=== PATIENT | male | born 1980 | race Caucasian/White ===

== ENCOUNTER 2017-03-24 14:59 | Emergency (ER) | payer OTHER ==
--- NOTE | 2017-03-24 15:56 | UC ---
General HPI - HPI Summary HPI Summary: Plays rec hockey. Last week was hit in ribs and still have discomfort in right upper chest. Has been taking ibuprofen for pain with good relief. Wants to make sure nothing is broken. No SOB, cough, or hemoptysis - History of Current Complaint Chief Complaint: UCGeneralIllness Stated Complaint: RIB INJURY Time Seen by Provider: 03/24/17 15:49 Hx Obtained From: Patient Onset/Duration: Sudden Onset Onset Severity: Moderate Current Severity: Mild - Allergy/Home Medications Allergies/Adverse Reactions: Allergies Allergy/AdvReac Type Severity Reaction Status Date / Time Sulfa Antibiotics Allergy Altered Verified 08/27/16 14:49 Mental Status Lactose Intolerance (GI) AdvReac Severe GI Verified 08/27/16 14:49 Doxycycline AdvReac Mild Vomiting Verified 08/27/16 14:49 PMH/Surg Hx/FS Hx/Imm Hx Previously Healthy: Yes Other History Of: Negative For: Anticoagulant Therapy - Surgical History Surgical History: Yes Surgery Procedure, Year, and Place: wisdom teeth - Family History Known Family History: Positive: None, Cardiac Disease - DAD [place] AGE 33 ( COCAINE USER). PGM [place] AGE 42 (HAD BLOOD CLOT) - Social History Alcohol Use: Occasionally Substance Use Type: Marijuana - former Substance Use Comment - Amount & Last Used: today "vaporizer" "i dont smoke it anymore bc i have asthma" Smoking Status (MU): Former Smoker Type: Cigarettes Amount Used/How Often: 5-10 CIG/DAY Length of Time of Smoking/Using Tobacco: 10+ years Have You Smoked in the Last Year: Yes When Did the Patient Quit Smoking/Using Tobacco: 4 months ago Household Exposure Type: Cigarettes - Immunization History Most Recent Influenza Vaccination: never Most Recent Tetanus Shot: up to date Review of Systems Constitutional: Negative Skin: Negative Respiratory: Negative Cardiovascular: Negative Musculoskeletal: Other: - Right rib/chest pain Neurological: Negative Psychological: Negative Is Patient Immunocompromised?: No All Other Systems Reviewed And Are Negative: Yes Physical Exam Triage Information Reviewed: Yes Appearance: Well-Appearing, Well-Nourished Vital Signs Reviewed: Yes Respiratory: Positive: Lungs clear, Normal breath sounds, No respiratory distress, No accessory muscle use Cardiovascular: Positive: RRR, No Murmur, Pulses Normal Musculoskeletal: Positive: Strength Intact, ROM Intact, No Edema, Other: - TTP over 3rd and 4th right ribs Neurological: Positive: Alert Psychological: Positive: Age Appropriate Behavior Skin Exam: Normal Skin: Negative: rashes, significant lesion(s) Course/Dx - Course Course Of Treatment: XR of ribs and chest were negative. Pt doing well with ibuprofen, but requested 200mg pills to adjust his doses as needed. - Differential Dx - Multi-Symptom Differential Diagnoses: Other - Rib Fracture. Trauma. Pneumothorax. URI. Provider Diagnoses: Chest wall contusion Discharge - Discharge Plan Condition: Stable Disposition: HOME Prescriptions: Ibuprofen [Ibuprofen 200 MG] 200 mg PO Q8HR PRN #100 cap PRN Reason: Pain Patient Education Materials: Rib Fracture (GEN) Referrals: Alberto Michelle MD [Primary Care Provider] - Additional Instructions: 1) 200mg Ibuprofen sent to pharmacy. You can take up to 800mg every 6 hours as you need to for pain. If you develop a fever, chest pain, SOB, new or worsening symptoms - please call our office or go to ED.
--- NOTE | 2017-03-24 17:24 | RAD ---
HISTORY: subacute trauma, right rib pain COMPARISONS: None VIEWS: 5, Frontal view of the chest with frontal and oblique views of the right hemithorax. FINDINGS: There is no displaced rib fracture or pneumothorax. The visualized lungs are clear. IMPRESSION: NO DISPLACED RIB FRACTURE OR PNEUMOTHORAX
[2017-03-24 17:37] VITALS: BP 136/88
== END 2017-03-24 17:33 | disposition home or self-care (01) ==
LOC: UCEAST 14:59
DX: S20.211A Contusion of right front wall of thorax, initial encounter (principal); W22.8XXA Striking against or struck by other objects, initial encounter; Y93.22 Activity, ice hockey; Y92.9 Unspecified place or not applicable; Z88.1 Allergy status to other antibiotic agents; Z88.2 Allergy status to sulfonamides; Z87.891 Personal history of nicotine dependence
CPT/HCPCS: 99202; G0463

== ENCOUNTER 2017-12-23 10:51 | Emergency (ER) | payer OTHER ==
[2017-12-23 11:08] VITALS: BP 123/81
--- NOTE | 2017-12-23 11:38 | UC ---
Skin Complaint HPI - HPI Summary HPI Summary: This is desran Navarroriel Neo documenting for attending Sarah Reina MD. This patient is a 37 year old M presenting to [facility] c/o a diffuse itching rash due to poison diane, he got into to the diane 3 days ago. Since then he has used topical cortisone and Benadryl without relief. He has a history of poison diane reactions and has taken prednisone for it last year. Patient denies trouble breathing and rash inside of his mouth. Patient denies any eye pain elbow he states his eyes have allergies and feel congested times. Patient does not feel he got poison diane in his lungs and advised. Patient without any other complaints. Patients medication reviewed this visit. - History of Current Complaint Chief Complaint: UCRash Time Seen by Provider: 12/23/17 11:17 Stated Complaint: SKIN COMPLAINT Hx Obtained From: Patient Onset/Duration: Still Present Skin Exposure Onset/Duration: Days Ago - 3 Timing: Constant Onset Severity: Moderate Current Severity: Moderate Pain Intensity: 0 Pain Scale Used: 0-10 Numeric Location: Diffuse Character: Redness Associated Signs & Symptoms: Positive: Negative - fever - Allergy/Home Medications Allergies/Adverse Reactions: Allergies Allergy/AdvReac Type Severity Reaction Status Date / Time doxycycline Allergy Rash Verified 12/23/17 11:09 lactose Allergy GI Upset Verified 12/23/17 11:09 Sulfa (Sulfonamide Allergy Rash Verified 12/23/17 11:09 Antibiotics) Home Medications: Home Medications Cetirizine* [ZyrTEC 10 MG TAB*] 10 mg PO DAILY 12/23/17 [History Confirmed 12/23] Review of Systems Constitutional: Negative Skin: Rash All Other Systems Reviewed And Are Negative: Yes PMH/Surg Hx/FS Hx/Imm Hx Previously Healthy: Yes Respiratory History: Asthma Other History Of: Negative For: Anticoagulant Therapy - Surgical History Surgical History: Yes Surgery Procedure, Year, and Place: wisdom teeth - Family History Known Family History: Positive: Cardiac Disease - DAD ID AGE 33 (COCAINE USER). 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 Alcohol Use: Occasionally Substance Use Type: Marijuana Substance Use Comment - Amount & Last Used: today "vaporizer" "i dont smoke it anymore bc i have asthma" Smoking Status (MU): Former Smoker Type: Cigarettes Amount Used/How Often: 5-10 CIG/DAY Length of Time of Smoking/Using Tobacco: 10+ years Have You Smoked in the Last Year: Yes When Did the Patient Quit Smoking/Using Tobacco: 4 months ago Household Exposure Type: Cigarettes - Immunization History Most Recent Influenza Vaccination: never Most Recent Tetanus Shot: up to date Physical Exam - Summary Physical Exam Summary: Vital Signs Reviewed: Yes A+Ox3, no distress Eyes: Conjunctiva Clear ENT: Hearing grossly normal neck: supple Respiratory: Positive: No respiratory distress, No accessory muscle use CTA throughout no w/r Cardiovascular: skin color reflect adequate perfusion RRR nl s1, s2 no m/r Musculoskeletal Exam: STEVE x 4 without difficulty Neurological: Positive: Alert, ambulatory without difficulty Psychological: Positive: Normal Response To Family Skin: Positive: Patient has patches of dry, raised Rash on arms, right buttock , right low back, left forearm, left leg. Erythematous base. Small scattered vesicles with an rash. There is consistent with contact dermatitis such as poison diane no rash noted on face. Triage Information Reviewed: Yes Vital Signs: Initial Vital Signs Temp 98 F 12/23/17 11:06 Pulse 66 12/23/17 11:06 Resp 16 12/23/17 11:06 BP 123/81 12/23/17 11:06 Pulse Ox 100 12/23/17 11:06 Eye Exam: Normal ENT Exam: Normal Dental Exam: Normal Neck exam: Normal Neck: Positive: 1 Respiratory Exam: Normal Cardiovascular Exam: Normal Abdominal Exam: Normal Musculoskeletal Exam: Normal Neurological Exam: Normal Psychological Exam: Normal Skin Exam: Normal Course/Dx - Course Course Of Treatment: Patient presents emergency department after coming in contact with poison diane. Patient with apparent contact dermatitis to his left arm, right buttock, left leg, left lower abdomen. Patient without any respiratory distress or intercrural symptoms. We'll prescribe prednisone taper. Recommend Benadryl with patient precautions. Cool soaks. Avoid NSAIDs. Return precautions. Patient comfortable in agreement with plan. - Diagnoses Provider Diagnoses: poison diane Discharge - Sign-Out/Discharge Documenting (check all that apply): Patient Departure - Discharge Plan Condition: Stable Disposition: HOME Prescriptions: predniSONE TAB* [Deltasone 20 MG TAB*] 20 mg PO DAILY #13 tab Patient Education Materials: Poison Diane (ED) Referrals: Alberto Michelle MD [Primary Care Provider] - Additional Instructions: - Take prednisone exactly as prescribed until gone - starting today - Okay to take Benadryl (1-2 tablets) every 6 hours as needed. This medication may cause drowsiness - do NOT drive, operate machinery or drink alcohol while taking Benadryl -Avoid getting over heated (hot showers, hot tubs, exercise) for at least 48 hours - Try to avoid aspirin, NSAIDs (Motrin, Aleve, Naprosyn) for 2-3 days - Okay to apply cool compresses to the area of injury -Contact your doctor or return here with questions or concerns - Billing Disposition and Condition Condition: STABLE Disposition: Home
== END 2017-12-23 12:15 | disposition home or self-care (01) ==
LOC: UCEAST 10:51
DX: L23.7 Allergic contact dermatitis due to plants, except food (principal); Z88.1 Allergy status to other antibiotic agents; Z91.011 Allergy to milk products; Z88.2 Allergy status to sulfonamides
CPT/HCPCS: 99212; G0463

== ENCOUNTER 2017-12-28 02:00 | Emergency (ER) | payer OTHER ==
[2017-12-28] MEDS ORDERED: NS 0.9% 1000 ML* 1,000 ML IV ONE (04:15)
[2017-12-28 04:54] LABS: ABS Basophils 0.2 10^3/ul (0-0.2); ABS Eosinophils 0.3 10^3/ul (0-0.6); ABS Lymphocytes 4.1 10^3/ul (1.0-4.8); ABS Neutrophils 9.2 10^3/ul (1.5-7.7); ABS Nucleated RBC 0 10^3/ul; Eosinophil % 2.1 % (0-6); Hematocrit 43 % (42-52); Hemoglobin 14.9 g/dl (14.0-18.0); Lymphocyte % 27.9 % (25-47); Mean Corpuscular HGB Conc 35 g/dl (31-36); Mean Corpuscular Hemoglobin 32 pg (27-31); Mean Corpuscular Volume 92 fL (80-94); Mean Platelet Volume 8.4 um3 (7.4-10.4); Nucleated Red Blood Cells % 0.1; Platelet Count 258 10^3/ul (150-450); Red Blood Count 4.66 10^6/ul (4.00-5.40); Red Cell Distribution Width 13 % (10.5-15); White Blood Count 14.8 10^3/ul (3.5-10.8)
[2017-12-28 05:00] LABS: INR 0.91 (0.77-1.02)
--- NOTE | 2017-12-28 05:08 | ED ---
Throat Pain/Nasal Congestion - HPI Summary HPI Summary: This is scribe Orlando Adams documenting for attending Dr. Geovanni Kelsey MD. A 37 y/o male presents to ED c/p sore throat/middle throat pain reaching 4/10 in severity. As per triage, "Pt states that he was playing hockey and was hit in the neck with stick. Pt with c/o throat pain. Pt denies other injury". According to the patient, he got hit in the throat with a hockey stick today around 2029 - 2144 during ice hockey play. He stated that since then he has been having trouble swallowing and has a sore throat since the incident. No pain medications, however, is on steroids for poison yessica. - History of Current Complaint Chief Complaint: EDThroatPain Time Seen by Provider: 12/28/17 03:59 Hx Obtained From: Patient Onset/Duration: Sudden Onset, Still Present Severity: Moderate - 4/10 Associated Signs And Symptoms: Positive: Negative Cough: None - Allergies/Home Medications Allergies/Adverse Reactions: Allergies Allergy/AdvReac Type Severity Reaction Status Date / Time doxycycline Allergy Rash Verified 12/23/17 11:09 lactose Allergy GI Upset Verified 12/23/17 11:09 Sulfa (Sulfonamide Allergy Rash Verified 12/23/17 11:09 Antibiotics) PMH/Surg Hx/FS Hx/Imm Hx Endocrine/Hematology History: Denies: Hx Anticoagulant Therapy, Hx Diabetes, Hx Systemic Lupus Erythematosus, Hx Thyroid Disease Cardiovascular History: Denies: Hx Congestive Heart Failure, Hx Hypertension, Hx Pacemaker/ICD Respiratory History: Reports: Hx Asthma Denies: Hx Chronic Obstructive Pulmonary Disease (COPD) GI History: Denies: Hx Ulcer History: Reports: Other Problems/Disorders - prostatitis Denies: Hx Renal Disease Sensory History: Denies: Hx Hearing Aid Neurological History: Denies: Hx Dementia, Hx Seizures Psychiatric History: Denies: Hx Panic Disorder, Hx Substance Abuse - Surgical History Surgery Procedure, Year, and Place: wisdom teeth - Immunization History Date of Tetanus Vaccine: ~2005 Date of Influenza Vaccine: NONE Infectious Disease History: No Infectious Disease History: Denies: Hx Clostridium Difficile, Hx Hepatitis, Hx Human Immunodeficiency Virus (HIV), Hx of Known/Suspected MRSA, Hx Shingles, Hx Tuberculosis, Hx Known/ Suspected VRE, Hx Known/Suspected VRSA, History Other Infectious Disease, Traveled Outside the [place] in Last 30 Days - Family History Known Family History: Positive: Cardiac Disease - DAD OR AGE 33 (COCAINE USER). PGM OR AGE 42 (HAD BLOOD CLOT) - Social History Alcohol Use: Occasionally Substance Use Type: Reports: Marijuana Substance Use Comment - Amount & Last Used: today "vaporizer" "i dont smoke it anymore bc i have asthma" Smoking Status (MU): Former Smoker Type: Cigarettes Amount Used/How Often: 5-10 CIG/DAY Length of Time of Smoking/Using Tobacco: 10+ years Have You Smoked in the Last Year: Yes Review of Systems Negative: Fever Positive: Sore Throat - Throat pain All Other Systems Reviewed And Are Negative: Yes Physical Exam - Summary Physical Exam Summary: VITAL SIGNS: Reviewed. GENERAL: Patient is a well-developed and nourished (MALE OR FEMALE) who is lying comfortable in the stretcher. Patient is not in any acute respiratory distress. HEAD AND FACE: No signs of trauma. No ecchymosis, hematomas or skull depressions. No sinus tenderness. EYES: PERRLA, EOMI x 2, No injected conjunctiva, no nystagmus. EARS: Hearing grossly intact. Ear canals and tympanic membranes are within normal limits. MOUTH: Oropharynx within normal limits. NECK: Supple, trachea is midline, no adenopathy, no JVD, no carotid bruit, no c- spine tenderness, neck with full ROM. Tenderness mid-neck. CHEST: Symmetric, no tenderness at palpation LUNGS: Clear to auscultation bilaterally. No wheezing or crackles. CVS: Regular rate and rhythm, S1 and S2 present, no murmurs or gallops appreciated. ABDOMEN: Soft, non-tender. No signs of distention. No rebound no guarding, and no masses palpated. Bowel sounds are normal. EXTREMITIES: FROM in all major joints, no edema, no cyanosis or clubbing. NEURO: Alert and oriented x 3. No acute neurological deficits. Speech is normal and follows commands. SKIN: Dry and warm Triage Information Reviewed: Yes Vital Signs On Initial Exam: Initial Vitals Temp Pulse Resp BP Pulse Ox 97.9 F 72 16 138/83 95 12/28/17 02:00 12/28/17 02:00 12/28/17 02:00 12/28/17 02:00 12/28/17 02:00 Vital Signs Reviewed: Yes Diagnostics - Vital Signs Vital Signs Temp Pulse Resp BP Pulse Ox 12/28/17 02:00 97.9 F 72 16 138/83 95 - Laboratory Lab Results: Lab Results 12/28/17 12/28/17 Range/Units 04:41 04:41 WBC 14.8 H (3.5-10.8) 10^3/ul RBC 4.66 (4.00-5.40) 10^6/ul Hgb 14.9 (14.0-18.0) g/dl Hct 43 (42-52) % MCV 92 (80-94) fL MCH 32 H (27-31) pg MCHC 35 (31-36) g/dl RDW 13 (10.5-15) % Plt Count 258 (150-450) 10^3/ul MPV 8.4 (7.4-10.4) um3 Neut % (Auto) 62.4 (38-83) % Lymph % (Auto) 27.9 (25-47) % [place] % (Auto) 6.4 (0-7) % Eos % (Auto) 2.1 (0-6) % Baso % (Auto) 1.2 (0-2) % Absolute Neuts (auto) 9.2 H (1.5-7.7) 10^3/ul Absolute Lymphs (auto) 4.1 (1.0-4.8) 10^3/ul Absolute Monos (auto) 1.0 H (0-0.8) 10^3/ul Absolute Eos (auto) 0.3 (0-0.6) 10^3/ul Absolute Basos (auto) 0.2 (0-0.2) 10^3/ul Absolute Nucleated RBC 0 10^3/ul Nucleated RBC % 0.1 INR (Anticoag Therapy) 0.91 (0.77-1.02) APTT 27.0 (26.0-36.3) seconds Result Diagrams: 12/28/17 04:41 12/28/17 04:41 Lab Statement: Any lab studies that have been ordered have been reviewed, and results considered in the medical decision making process. - CT CT NECK CT Interpretation Completed By: Radiologist - Negative CT soft tissue neck. ED physician reviewed this radiology report. Re-Evaluation - Re-Evaluation First Eval Re-Evaluation Time: 06:34 Comment: Discussed results and plan. EENT Course/Dx - Course Course Of Treatment: A 37 y/o male presents to ED c/p sore throat/middle throat pain reaching 4/[address] Neck revealed a negative CT soft tissue neck. In the ED course, the patient recieved Omnipaque and IV fluids. Patient will be discharged with a diagnosis of contusion. Patient is to follow up with PCP in 1-2 days. Patient is agreeable with this plan. - Diagnoses Provider Diagnoses: Contusion Discharge - Sign-Out/Discharge Documenting (check all that apply): Patient Departure - DISCHARGE - Discharge Plan Condition: Stable Disposition: HOME Patient Education Materials: Contusion in Adults (ED) Referrals: Alberto Michelle MD [Primary Care Provider] - 2 Days Additional Instructions: FOLLOW UP WITH PRIMARY CARE ON SATURDAY. RETURN TO ED FOR ANY NEW OR WORSENING SYMPTOMS.
[2017-12-28 05:09] LABS: EGFR Non-African American 89.7 (>60)
[2017-12-28] MEDS ORDERED: Iohexol 300* (CONTRAST) 10 ML SDV IV ONE (05:34)
[2017-12-28 07:02] VITALS: BP 155/81
--- NOTE | 2017-12-28 09:55 | RAD ---
Indication: Neck injury with hockey stick of the neck. Contrast: Administered 46.2 ml of OMNIPAQUE 300 mg/ml CT of the soft tissues of the neck was performed after IV contrast in the axial plane. Sagittal and coronal reconstructed images were obtained. Oral pharynx is unremarkable. Hypopharynx is unremarkable. Larynx and epiglottis appear grossly unremarkable. Performed recesses are unremarkable. The trachea demonstrates no fracture. Thyroid is grossly unremarkable. Submandibular glands and parotid glands are grossly unremarkable. No fracture of the hyoid bone is noted. The visualized mandible and cervical spine are otherwise unremarkable. Soft tissue demonstrates no evidence of hematoma. No definite soft tissue swelling is noted. Strap muscles and clavicles are grossly unremarkable. The carotid arteries and jugular veins are unremarkable. The lung apices are intact. IMPRESSION: Unremarkable CT of the neck.
== END 2017-12-28 06:55 | disposition home or self-care (01) ==
LOC: ED 02:00
DX: S10.93XA Contusion of unspecified part of neck, initial encounter (principal); W22.8XXA Striking against or struck by other objects, initial encounter; Y92.9 Unspecified place or not applicable; Z87.891 Personal history of nicotine dependence
CPT/HCPCS: 36415; 70491; 80053; 83735; 85025; 85610; 85730; 99282; Q9967

== ENCOUNTER 2018-07-03 22:50 | Emergency (ER) | payer OTHER ==
--- NOTE | 2018-07-03 23:22 | ED ---
HPI Cardiac - HPI Summary HPI Summary: Pt is a 37 y/o M presenting to the ED brought in by EMS with a chief complaint of fast heart rate. He has a hx of asthma and GERD, and he used his albuterol inhaler tonight when playing ice hockey. He got off the bench and fell over due to loss of energy and fast heart rate. He reports fhx of heart attack at 37. - History of Current Complaint Stated Complaint: RAPID HR Time Seen by Provider: 07/03/18 23:01 Hx Obtained From: Patient Onset/Duration: Started Hours Ago, Resolved Timing: Constant Initial Severity: Mild Current Severity: None Character: Fast Aggravating Factor(s): Exertion, Other: - albuterol inhaler Alleviating Factor(s): EMS Tx Associated Signs and Symptoms: Positive: Other: - fast heart rate. Negative: Chest Pain - Allergy/Home Medications Allergies/Adverse Reactions: Allergies Allergy/AdvReac Type Severity Reaction Status Date / Time doxycycline Allergy Rash Verified 12/23/17 11:09 lactose Allergy GI Upset Verified 12/23/17 11:09 Sulfa (Sulfonamide Allergy Rash Verified 12/23/17 11:09 Antibiotics) PMH/Surg Hx/FS Hx/Imm Hx Previously Healthy: Yes Endocrine/Hematology History: Denies: Hx Anticoagulant Therapy, Hx Diabetes, Hx Systemic Lupus Erythematosus, Hx Thyroid Disease Cardiovascular History: Denies: Hx Congestive Heart Failure, Hx Hypertension, Hx Pacemaker/ICD Respiratory History: Reports: Hx Asthma Denies: Hx Chronic Obstructive Pulmonary Disease (COPD) GI History: Denies: Hx Ulcer History: Reports: Other Problems/Disorders - prostatitis Denies: Hx Renal Disease Sensory History: Denies: Hx Hearing Aid Neurological History: Denies: Hx Dementia, Hx Seizures Psychiatric History: Denies: Hx Panic Disorder, Hx Substance Abuse - Surgical History Surgery Procedure, Year, and Place: wisdom teeth - Immunization History Date of Tetanus Vaccine: ~2005 Date of Influenza Vaccine: NONE Infectious Disease History: Denies: Hx Clostridium Difficile, Hx Hepatitis, Hx Human Immunodeficiency Virus (HIV), Hx of Known/Suspected MRSA, Hx Shingles, Hx Tuberculosis, Hx Known/ Suspected VRE, Hx Known/Suspected VRSA, History Other Infectious Disease - Family History Known Family History: Positive: Cardiac Disease - DAD [place] AGE 33 (COCAINE USER). PGM [place] AGE 42 (HAD BLOOD CLOT) - Social History Alcohol Use: Occasionally Substance Use Type: Reports: Marijuana Substance Use Comment - Amount & Last Used: today "vaporizer" "i dont smoke it anymore bc i have asthma" Smoking Status (MU): Former Smoker Type: Cigarettes Amount Used/How Often: 5-10 CIG/DAY Length of Time of Smoking/Using Tobacco: 10+ years Have You Smoked in the Last Year: Yes Review of Systems Negative: Fever Positive: Other - fast heart rate All Other Systems Reviewed And Are Negative: Yes Physical Exam - Summary Physical Exam Summary: VITAL SIGNS: Reviewed. GENERAL: Patient is a well-developed and nourished male who is lying comfortable in the stretcher. Patient is not in any acute respiratory distress. HEAD AND FACE: No signs of trauma. No ecchymosis, hematomas or skull depressions. No sinus tenderness. EYES: PERRLA, EOMI x 2, No injected conjunctiva, no nystagmus. EARS: Hearing grossly intact. Ear canals and tympanic membranes are within normal limits. MOUTH: Oropharynx within normal limits. NECK: Supple, trachea is midline, no adenopathy, no JVD, no carotid bruit, no c- spine tenderness, neck with full ROM. CHEST: Symmetric, no tenderness at palpation LUNGS: Clear to auscultation bilaterally. No wheezing or crackles. CVS: Regular rate and rhythm, S1 and S2 present, no murmurs or gallops appreciated. ABDOMEN: Soft, non-tender. No signs of distention. No rebound no guarding, and no masses palpated. Bowel sounds are normal. EXTREMITIES: FROM in all major joints, no edema, no cyanosis or clubbing. NEURO: Alert and oriented x 3. No acute neurological deficits. Speech is normal and follows commands. SKIN: Dry and warm Triage Information Reviewed: Yes Vital Signs Reviewed: Yes Diagnostics - Laboratory Result Diagrams: 07/03/18 23:39 07/03/18 23:39 Lab Statement: Any lab studies that have been ordered have been reviewed, and results considered in the medical decision making process. - EKG 2326 Cardiac Rate: NL - 66bpm EKG Rhythm: Sinus Rhythm ST Segment: Normal Ectopy: None Re-Evaluation - Re-Evaluation 1st re-eval Re-Evaluation Time: 00:40 Change: Improved Comment: Pt is feeling better and has been in sinus rhythm since he has arrived to the ED. He will be discharged with a dx of SVT. Disposition - Course Course Of Treatment: Pt is a 37 y/o M presenting to the ED brought in by EMS with a chief complaint of fast heart rate. He has a hx of asthma and GERD, and he used his albuterol inhaler tonight when playing ice hockey. He got off the bench and fell over due to loss of energy and fast heart rate. He reports fhx of heart attack at 37. Pt is feeling better as of 40 and will be discharged home with a dx of SVT and instructions to follow up with cardiology. - Diagnoses Provider Diagnoses: SVT (supraventricular tachycardia) Discharge - Sign-Out/Discharge Documenting (check all that apply): Patient Departure Patient Received Moderate/Deep Sedation with Procedure: No - Discharge Plan Condition: Stable Disposition: HOME Patient Education Materials: Supraventricular Tachycardia (ED) Referrals: Alberto Michelle MD [Primary Care Provider] - Additional Instructions: PLEASE FOLLOW UP WITH CARDIOLOGY IN THE NEXT 1-2 DAYS. ALSO FOLLOW UP WITH YOUR PCP IN THE NEXT 1-2 DAYS. RETURN TO THE EMERGENCY DEPARTMENT WITH ANY NEW OR WORSENING SYMPTOMS. - Attestation Statements Document Initiated by Scribe: Yes Documenting Scribe: Tabby Dozier Provider For Whom Sebastiánibe is Documenting (Include Credential): Geovanni Kelsey MD. Scribe Attestation: Tabby Norris, dallased for Geovanni Kelsey MD. on 07/04/18 at 0041. Status of Scribe Document: Ready
[2018-07-03 23:45] LABS: ABS Basophils 0.1 10^3/ul (0-0.2); ABS Eosinophils 0.1 10^3/ul (0-0.6); ABS Lymphocytes 1.9 10^3/ul (1.0-4.8); ABS Monocytes 0.7 10^3/ul (0-0.8); ABS Neutrophils 9.3 10^3/ul (1.5-7.7); ABS Nucleated RBC 0 10^3/ul; Eosinophil % 0.7 %; Hematocrit 47 % (42-52); Lymphocyte % 15.9 %; Mean Corpuscular HGB Conc 34 g/dl (31-36); Mean Corpuscular Hemoglobin 32 pg (27-31); Mean Corpuscular Volume 92 fL (80-94); Mean Platelet Volume 8.4 fL (7.4-10.4); Nucleated Red Blood Cells % 0; Platelet Count 256 10^3/ul (150-450); Red Blood Count 5.09 10^6/ul (4.00-5.40); Red Cell Distribution Width 13 % (10.5-15); White Blood Count 12.2 10^3/ul (3.5-10.8)
[2018-07-04] LABS: Activated Partial Thrombo Time 27.4 seconds (26.0-36.3); INR 0.97 (0.77-1.02)
[2018-07-04 00:05] LABS: Albumin 4.5 g/dL (3.2-5.2); Albumin/Globulin Ratio 1.7 (1-3); BUN/Creatinine Ratio 18.6 (8-20); Calcium 9.8 mg/dL (8.6-10.3); EGFR Non-African American 82.6 (>60); Globulin 2.7 g/dL (2-4); Potassium 4.1 mmol/L (3.5-5.0); Total Bilirubin 0.4 mg/dL (0.2-1.0); Total Protein 7.2 g/dL (6.4-8.9)
[2018-07-04 00:07] LABS: Troponin I 0.02 ng/mL (<0.04)
[2018-07-04 00:26] LABS: TSH (Thyroid Stimulating Horm) 2.5 mcIU/mL (0.34-5.60)
[2018-07-04 01:07] VITALS: BP 111/68
== END 2018-07-04 01:07 | disposition home or self-care (01) ==
LOC: ED 22:50
DX: I47.1 Supraventricular tachycardia (principal); K21.9 Gastro-esophageal reflux disease without esophagitis; J45.909 Unspecified asthma, uncomplicated; Z87.891 Personal history of nicotine dependence; Z88.2 Allergy status to sulfonamides
CPT/HCPCS: 36415; 80053; 83735; 84443; 84484; 85025; 85610; 85730; 93005; 99283

== ENCOUNTER 2018-07-21 15:59 | Emergency (ER) | payer OTHER ==
--- OUTSIDE RECORDS SUMMARY | 2018-07-21 16:04 | XMS REPORT | Continuity of Care Document ---
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 Alberto Michelle MD Primary Care Physician Unavailable Payers Date Identification Numbers Payment Provider Subscriber Effective: 2013 Policy Number: [id number] [facility] Amador Stanton PayID: [id number] [address] [address] [place] [address] Advance Directives Description No Information Available Problems Description No Information Family History Date Family Member(s) Observation Comments Father [place] Paternal Grandfather Prostate Cancer Paternal Grandfather Aneurysm cerebral Paternal Grandmother Deep Vein Thrombosis Social History Type Date Description Comments Sex Unknown Lives With Girlfriend Occupation [employer] Tobacco Use Start: Unknown End: Unknown Patient is a former smoker Allergies, Adverse Reactions, Alerts Date Description Reaction Status Severity Comments 12/04/2013 Seasonal Active 12/04/2013 Mold Active 01/02/2016 Sulfa Active 08/16/2016 White [place] Active 07/29/2013 NKDA Inactive Medications Medication Date Status Form Strength Qnty SIG Indications Ordering Provider Airduo 04/07/ Active Aerosol 113-14mcg/ 3unit one Alberto Walls Respiclick 2018 Act s inhalation Fina 113/14 daily MD anand Famotidine 04/02/ Active Tablets 40mg 60tab 1 tab by K21.9 Alberto Walls 2018 s mouth twice Fina a day prn MD anand Cetirizine HCL 10/09/ Active Tablets 10mg 30tab 1 by mouth R22.1 Wanda 2016 s every day 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 needed for cough or shortness of breath Epipen 2-Koffi / Active Solution 0.3mg/0.3M use as Unknown 0000 Auto-Injec L directed t Symbicort 04/02/ Hx Aerosol 80-4.5mcg/ 10.20 inhale 2 Alberto Walls 2018 - Act 0gm puffs by Fina 04/07/ mouth liya michel MD 2018 times daily Breo Ellipta 12/19/ Hx Aerosol 100-25mcg/ 28uni 1 puff once Chantell 2017 - Inh ts daily Sandra, SAND WORKER 2018 Valium 09/06/ Hx Tablets 5mg 2tabs take 1 Alberto Jon 2016 - 1hour Viviana, 11/06/ prior to M.D. 2016 procedure take another at procedure if needed Ibuprofen 08/16/ Hx Tablets 800mg 30tab take one Dane Boles 2016 - s tablet by Ghada, 03/27/ mouth every M.D. 2018 8 hours as needed with food; maximum daily dose=3 MDD 3 Symbicort 06/19/ Hx Aerosol 80-4.5mcg/ 10.2u 2 puff Chantell 2016 - Act nits twice a day Sandra, 12/19/ SAND WORKER 2017 Flexeril 01/01/ Hx Tablets 10mg 30tab 1 by mouth Alberto Jon 2015 - s three times Viviana, 03/27/ a day as M.D. 2018 needed muscle spasm Flomax 10/06/ Hx Capsules 0.4mg 90cap take one Alberto Jon 2015 - s capsule by Viviana, 08/16/ mouth every M.D. 2017 night Medrol 10/04/ Hx TBPK 4mg 1unit use as Alberto Jon 2015 - s directed Viviana, 10/09/ M.D. 2016 Symbicort 05/18/ Hx Aerosol 80-4.5mcg/ 10.2u 2 puff J45.30 Alberto Jon 2014 - Act nits twice a day Lolaimasierra, 01/01/ M.D. 2015 Symbicort 11/03/ Hx Aerosol 160-4.5mcg 10.20 1-2 puff 493.90 Gaetano 2014 - /Act 0gm twice a day Nigel M.DStu 2015 Physical Hx evaluate 719.47 Wanda Therapy 2015 - and treat JUDAH Edwards 03/30/ Rt foot and 2015 ankle pain Montelukast 12/20/ Hx Tablets 10mg 30tab take 1 R22.1 Gaetano Sodium 2013 - s tablet by Nigel 08/16/ mouth every M.D. 2016 evening Bactrim DS 12/04/ Hx Tablets 800-160mg 28tab 1 po bid 601.9 Gaetano 2014 - s for 14 days Nigel M.DStu 2013 Ciprofloxacin 10/27/ Hx Tablets 500mg 28tab 1 po bid 601.9 Gaetano HCL 2013 - s for 14 days Nigel M.DStu 2013 Symbicort 09/25/ Hx Aerosol 80-4.5mcg/ 1unit 2 puff 493.90 Gaetano 2013 - Act s twice a day Nigel M.DStu 2014 No Active 07/29/ Hx Unknown Medications 2013 - 2013 Loratadine 07/29/ Hx Tablets 10mg 30tab 1 by mouth Gaetano 2013 - s every day Nigel M.DStu 2016 Singulair / Hx Tablets 10mg 30tab 1 po qd Unknown 0000 - s 2013 Ibuprofen / Hx Tablets 600mg 1 tab by Unknown 0000 - mouth every 08/16/ 8 hours as 2017 needed pain. take with food Hydrocodone-Daniele / Hx Tablets 5-325mg 14tab 1 by mouth Unknown taminophen 0000 - s four times 08/16/ a day 2017 Immunizations CPT Code Status Date Vaccine Lot # [id number] Given 04/21/2014 Tdap Tetanus, W Pertussis [id number] Vital Signs Date Vital Result Comment 07/04/2018 3:52pm BP Systolic 100 mmHg BP Diastolic 70 mmHg Heart Rate 56 /min Body Temperature 97.5 F Respiratory Rate 17 /min Height 68 inches 5'8" Weight 225.00 lb BMI (Body Mass Index) 34.2 kg/m2 04/02/2018 7:45pm BP Systolic 116 mmHg BP Diastolic 60 mmHg Heart Rate 72 /min Body Temperature 99.0 F Respiratory Rate 16 /min Height 68 inches 5'8" Weight 218.25 lb BMI (Body Mass Index) 33.2 kg/m2 11/06/2016 10:36am BP Systolic 110 mmHg BP Diastolic 72 mmHg Heart Rate 64 /min Body Temperature 97.3 F Respiratory Rate 18 /min Height 68 inches 5'8" Weight 219.00 lb BMI (Body Mass Index) 33.3 kg/m2 08/16/2016 7:13pm BP Systolic 120 mmHg BP Diastolic 78 mmHg Heart Rate 60 /min Body Temperature 98.3 F Respiratory Rate 16 /min Height 68 inches 5'8" Weight 219.00 lb BMI (Body Mass Index) 33.3 kg/m2 01/02/2016 2:16pm BP Systolic 124 mmHg BP Diastolic 74 mmHg Heart Rate 62 /min Body Temperature 98.1 F Respiratory Rate 18 /min Height 68 inches 5'8" Weight 203.00 lb BMI (Body Mass Index) 30.9 kg/m2 10/17/2015 3:45pm BP Systolic 118 mmHg BP Diastolic 70 mmHg Heart Rate 60 /min Body Temperature 97.6 F Respiratory Rate 18 /min Height 68 inches 5'8" Weight 187.00 lb BMI (Body Mass Index) 28.4 kg/m2 10/10/2015 2:26pm BP Systolic 120 mmHg BP Diastolic 76 mmHg Heart Rate 64 /min Body Temperature 98.9 F Respiratory Rate 16 /min O2 % BldC Oximetry 98 % Height 68 inches 5'8" Weight 193.00 lb BMI (Body Mass Index) 29.3 kg/m2 10/05/2015 11:23am BP Systolic 110 mmHg BP Diastolic 64 mmHg Heart Rate 60 /min Body Temperature 97.9 F Respiratory Rate 18 /min Height 68 inches 5'8" Weight 191.00 lb BMI (Body Mass Index) 29.0 kg/m2 03/30/2015 10:36am BP Systolic 122 mmHg BP Diastolic 74 mmHg Heart Rate 58 /min Body Temperature 97.3 F Respiratory Rate 18 /min Height 68 inches 5'8" Weight 197.00 lb BMI (Body Mass Index) 30.0 kg/m2 11/03/2014 3:55pm BP Systolic 100 mmHg BP Diastolic 60 mmHg Heart Rate 60 /min Body Temperature 99.3 F Respiratory Rate 16 /min O2 % BldC Oximetry 98 % Height 68 inches 5'8" Weight 205.12 lb BMI (Body Mass Index) 31.2 kg/m2 08/03/2014 10:25am BP Systolic 120 mmHg BP Diastolic 70 mmHg Heart Rate 60 /min Body Temperature 97.9 F Respiratory Rate 16 /min Height 68 inches 5'8" Weight 205.00 lb BMI (Body Mass Index) 31.2 kg/m2 02/23/2014 3:34pm BP Systolic 120 mmHg BP Diastolic 76 mmHg Heart Rate 60 /min Body Temperature 98.5 F Respiratory Rate 12 /min Height 68 inches 5'8" Weight 210.00 lb BMI (Body Mass Index) 31.9 kg/m2 12/04/2013 3:35pm BP Systolic 112 mmHg BP Diastolic 78 mmHg Heart Rate 66 /min Body Temperature 97.8 F Height 68 inches 5'8" Weight 214.38 lb BMI (Body Mass Index) 32.6 kg/m2 10/27/2013 8:42am BP Systolic 112 mmHg BP Diastolic 70 mmHg Heart Rate 64 /min Body Temperature 97.5 F Respiratory Rate 16 /min Height 68 inches 5'8" Weight 219.12 lb BMI (Body Mass Index) 33.3 kg/m2 09/25/2013 3:17pm BP Systolic 130 mmHg BP Diastolic 90 mmHg Heart Rate 72 /min Body Temperature 96.6 F Respiratory Rate 12 /min Height 68 inches 5'8" Weight 221.00 lb BMI (Body Mass Index) 33.6 kg/m2 07/29/2013 1:15pm BP Systolic 124 mmHg BP Diastolic 80 mmHg Heart Rate 66 /min Body Temperature 98.3 F Respiratory Rate 18 /min Height 68 inches 5'8" Weight 212.00 lb BMI (Body Mass Index) 32.2 kg/m2 Results Test Date Facility Test Result H/L Range Note CBC Auto Diff 07/03/2018 [facility] White Blood Count 12.2 10^3/uL High 3.5- 10.8 Red Blood Count 5.09 10^6/uL N 4.00-5.40 Hemoglobin 16.0 g/dL N 14.0-18.0 Hematocrit 47 % N 42-52 Mean Corpuscular Volume 92 fL N 80-94 Mean Corpuscular Hemoglobin 32 pg High 27-31 Mean Corpuscular HGB Conc 34 g/dL N 31-36 Red Cell Distribution Width 13 % N 10.5-15 Platelet Count 256 10^3/uL N 150-450 Mean Platelet Volume 8.4 fL N 7.4-10.4 Abs Neutrophils 9.3 10^3/uL High 1.5-7.7 Abs Lymphocytes 1.9 10^3/uL N 1.0-4.8 Abs Monocytes 0.7 10^3/uL N 0-0.8 Abs Eosinophils 0.1 10^3/uL N 0-0.6 Abs Basophils 0.1 10^3/uL N 0-0.2 Abs Nucleated RBC 0 10^3/uL Granulocyte % 76.5 % Lymphocyte % 15.9 % Monocyte % 6.1 % Eosinophil % 0.7 % Basophil % 0.8 % Nucleated Red Blood Cells % 0 Comp Metabolic Panel 07/03/2018 [facility] Sodium 138 mmol/L N 135-145 Potassium 4.1 mmol/L N 3.5-5.0 Chloride 107 mmol/L N 101-111 Co2 Carbon Dioxide 26 mmol/L N 22-32 Anion Gap 5 mmol/L N 2-11 Glucose 105 mg/dL High 70-100 Blood Urea Nitrogen 19 mg/dL N 6-24 Creatinine 1.02 mg/dL N 0.67-1.17 BUN/Creatinine Ratio 18.6 N 8-20 Calcium 9.8 mg/dL N 8.6-10.3 Total Protein 7.2 g/dL N 6.4-8.9 Albumin 4.5 g/dL N 3.2-5.2 Globulin 2.7 g/dL N 2-4 Albumin/Globulin Ratio 1.7 N 1-3 Total Bilirubin 0.40 mg/dL N 0.2-1.0 Alkaline Phosphatase 63 U/L N 34-104 Alt 29 U/L N 7-52 Ast 18 U/L N 13-39 Egfr Non- 82.6 >60 Egfr 100.0 >60 1 Laboratory test finding 07/03/2018 [facility] Magnesium 2.0 mg/dL N 1.9-2.7 Troponin I 0.02 ng/mL <0.04 2 TSH (Thyroid Stim Horm) 2.50 mcIU/mL N 0.34-5.60 Inr/Protime 07/03/2018 [facility] Inr 0.97 N 0.77-1.02 Laboratory test 07/03/2018 [facility] Partial 27.4 seconds N 26.0-36.3 finding Thrombo Time PTT Laboratory test 04/02/2018 [facility] C-Reactive 1.4 mg/L 0.0-4.9 3 finding [address] [facility] Protein, [place] [address] (607)- - Lyme AB/Western 04/02/2018 [facility] Lyme IgG/IgM <0.91 ISR 0.00-0.90 4 Blot Reflex [address] [facility] [place] [address] (607)- - Lyme Disease Ab, Quant, IgM <0.80 index 0.00-0.79 5 CBC Auto Diff 12/28/2017 [facility] White Blood Count 14.8 10^3/uL High 3.5- 10.8 Red Blood Count 4.66 10^6/uL N 4.00-5.40 Hemoglobin 14.9 g/dL N 14.0-18.0 Hematocrit 43 % N 42-52 Mean Corpuscular Volume 92 fL N 80-94 Mean Corpuscular Hemoglobin 32 pg High 27-31 Mean Corpuscular HGB Conc 35 g/dL N 31-36 Red Cell Distribution Width 13 % N 10.5-15 Platelet Count 258 10^3/uL N 150-450 Mean Platelet Volume 8.4 um3 N 7.4-10.4 Abs Neutrophils 9.2 10^3/uL High 1.5-7.7 Abs Lymphocytes 4.1 10^3/uL N 1.0-4.8 Abs Monocytes 1.0 10^3/uL High 0-0.8 Abs Eosinophils 0.3 10^3/uL N 0-0.6 Abs Basophils 0.2 10^3/uL N 0-0.2 Abs Nucleated RBC 0 10^3/uL Granulocyte % 62.4 % N 38-83 Lymphocyte % 27.9 % N 25-47 Monocyte % 6.4 % N 0-7 Eosinophil % 2.1 % N 0-6 Basophil % 1.2 % N 0-2 Nucleated Red Blood Cells % 0.1 Inr/Protime 12/28/2017 [facility] Inr 0.91 N 0.77-1.02 Laboratory test finding 12/28/2017 [facility] Partial Thrombo 27.0 seconds N 26.0-36.3 Time PTT Comp Metabolic Panel 12/28/2017 [facility] Sodium 140 mmol/L N 135-145 Chloride 105 mmol/L N 101-111 Co2 Carbon Dioxide 28 mmol/L N 22-32 Glucose 99 mg/dL N 70-100 Blood Urea Nitrogen 15 mg/dL N 6-24 Creatinine 0.95 mg/dL N 0.67-1.17 BUN/Creatinine Ratio 15.8 N 8-20 Calcium 9.5 mg/dL N 8.6-10.3 Total Protein 6.6 g/dL N 6.4-8.9 Albumin 4.0 g/dL N 3.2-5.2 Globulin 2.6 g/dL N 2-4 Albumin/Globulin Ratio 1.5 N 1-3 Total Bilirubin 0.30 mg/dL N 0.2-1.0 Alkaline Phosphatase 63 U/L N 34-104 Alt 30 U/L N 7-52 Egfr Non- 89.7 >60 Egfr 108.5 >60 6 Potassium 4.2 mmol/L N 3.5-5.0 Anion Gap 7 mmol/L N 2-11 Ast 20 U/L N 13-39 Laboratory test 12/28/2017 [facility] Magnesium 2.2 mg/dL N 1.9-2.7 finding Complete Blood Count 08/17/2016 [facility] ([facility]) WBC 7.6 x10^3/UL 3.6-9.6 RBC 5.14 x10^6/UL 3.90-5.70 HGB 16.2 g/dL 12.1-17.2 HCT 48 % 36-50 MCV 93.0 fL 82.2-97.4 MCH 31.5 pg 27.6-33.3 MCHC 34.1 g/dL 33.0-35.5 RDW 12.8 % 11.6-13.7 PLT 289 x10^3/UL 150-400 MPV 7.4 fL 7.4-10.4 Gran # 4.6 x10^3/UL 1.5-7.2 Lymph# 2.7 x10^3/UL 0.7-4.9 [place]# 0.3 x10^3/UL 0.1-0.9 Gran % 59.0 % 42.2-75.2 Lymph % 36.1 % 20.5-51.1 [place]% 4.9 % 1.7-9.3 Basic Metabolic Profile 08/17/2016 [facility] (a) Sodium 142 mEq/L 134-149 Potassium 4.6 mEq/L 3.6-5.5 Chloride 107 mEq/L 94-112 Carbon Dioxide 25 mEq/L 21-32 Glucose 113 mg/dL High 70-105 7 BUN 17 mg/dL 6-26 Creatinine 0.9 mg/dL 0.6-1.4 BUN/Creat Ratio 18.9 CALC 8.0-36.0 Calcium 8.9 mg/dL 8.6-10.2 GFR Non- >60 ml/min/1.73m^ >=60 GFR >60 ml/min/1.73m^ >=60 Laboratory test 08/17/2016 [facility] Sedimentation Rate 3mm finding (607)- - Laboratory test 01/02/2016 [facility] Antinuclear Negative 8 finding [address] [facility] Antibodies, [place] [address] (607)- - Laboratory test 01/02/2016 [facility] Sedimentation Rate 7mm finding (607)- - Rheumatoid 01/02/2016 [facility] Ra Latex Turbid. 9.2 IU/mL 0.0-13 Arthritis Factor [address]9 ([facility]) [place] [address] (607)- - Laboratory test 01/02/2016 [facility] C-Reactive Protein, 15.2 mg/L High 0.0 -4. finding [address] [facility] Quant 9 [place] [address] (607)- - Hla B 27 Disease Association Negative 9 CBC Electronic (Fma) 01/02/2016 [facility] WBC 8.4 3.6-9.6 (607)- - RBC 4.43 3.90-5.70 Hemoglobin (Fma/CMC/CTX) 15.2 g/dL 12.1 - 17.2 Hematocrit (Fma/CMC/CTX) 42.8 % 36.1 - 50.3 Platelets 250 10^3/ul 150-400 Lymph% 22.8 % 17.0-48.0 Mixed% 4.3 Neutrophils % 72.9 Mean Corpuscular Vol 96 82.2-97.4 Mean Corpuscular Hemoglobin 34.2 High 27.6-33.3 Mean Corpuscular Hemo Concen 35.4 32.0-36.0 RDW 12.6 11.6-13.7 Mean Platelet Volume 8.1 5.5-11.0 CBC Auto Diff 12/30/2015 [facility] White Blood Count 17.8 10^3/uL High 3.5- 10.8 Red Blood Count 5.04 10^6/uL N 4.0-5.4 Hemoglobin 15.8 g/dL N 14.0-18.0 Hematocrit 47 % N 42-52 Mean Corpuscular Volume 93 fL N 80-94 Mean Corpuscular Hemoglobin 31 pg N 27-31 Mean Corpuscular HGB Conc 34 g/dL N 31-36 Red Cell Distribution Width 13 % N 10.5-15 Platelet Count 228 10^3/uL N 150-450 Mean Platelet Volume 10 um3 N 7.4-10.4 Abs Neutrophils 15.1 10^3/uL High 1.5-7.7 Abs Lymphocytes 1.6 10^3/uL N 1.0-4.8 Abs Monocytes 0.9 10^3/uL High 0-0.8 Abs Eosinophils 0.1 10^3/uL N 0-0.6 Abs Basophils 0.1 10^3/uL N 0-0.2 Abs Nucleated RBC 0 10^3/uL N Granulocyte % 84.8 % High 38-83 Lymphocyte % 9.1 % Low 25-47 Monocyte % 5.1 % N 1-9 Eosinophil % 0.4 % N 0-6 Basophil % 0.6 % N 0-2 Nucleated Red Blood Cells % 0 N Urinalysis Profile 12/30/2015 [facility] Urine Color Yellow N Urine Appearance Clear N Urine Specific [place] 1.051 High 1.010-1.030 Urine pH 5.0 N 5-9 Urine Urobilinogen Negative N Negative Urine Ketones Trace Abnormal Negative Urine Protein Negative N Negative Urine Leukocytes Negative N Negative Urine Blood Negative N Negative Urine Nitrite Negative N Negative Urine Bilirubin Negative N Negative Urine Glucose Negative N Negative Laboratory test finding 12/30/2015 [facility] Lactic Acid 1.9 mmol/L N 0.5-2.0 10 Comp Metabolic Panel 12/30/2015 [facility] Sodium 139 mmol/L N 133-145 Potassium 3.4 mmol/L Low 3.5-5.0 Chloride 104 mmol/L N 101-111 Co2 Carbon Dioxide 26 mmol/L N 22-32 Anion Gap 9 mmol/L N 2-11 Glucose 108 mg/dL High 70-100 Blood Urea Nitrogen 18 mg/dL N 6-24 Creatinine 1.06 mg/dL N 0.67-1.17 BUN/Creatinine Ratio 17.0 N 8-20 Calcium 9.2 mg/dL N 8.6-10.3 Total Protein 7.0 g/dL N 6.4-8.9 Albumin 4.2 g/dL N 3.2-5.2 Globulin 2.8 g/dL N 2-4 Albumin/Globulin Ratio 1.5 N 1-3 Total Bilirubin 0.50 mg/dL N 0.2-1.0 Alkaline Phosphatase 61 U/L N 34-104 Alt 19 U/L N 7-52 Ast 17 U/L N 13-39 Egfr Non- 80.0 N >60 Egfr 102.9 N >60 11 Laboratory test finding 12/30/2015 [facility] Lipase 28 U/L N 11.0-82.0 Alcohol < 10 mg/dL N <10 Laboratory test 10/17/2015 [facility] C1 Esterase 122 %meannormal 12, 13 finding [address] [facility] Inhibitor, [place] [address] (013)- - C1 Esterase Inhibitor, Serum 34 mg/dL 21-39 Complement C4, Serum 32 mg/dL 14-44 Tryptase 7.6 ug/L 2.2-13.2 Laboratory test finding 10/15/2015 [facility] B Type Natriuretic 11 pg/mL N 14 Peptide CKMB 10/15/2015 [facility] CKMB ng/mL 0.9 ng/mL N 0.6-6.3 Laboratory test finding 10/15/2015 [facility] Magnesium 2.1 mg/dL N 1.9-2.7 Creatine Kinase(CK) 67 U/L N 10-223 Troponin I 0.00 ng/mL N <0.03 15 Urine Drug SCR ED 10/15/2015 [facility] Amphetamine Ur Screen None Detected N None Detect [facility] Barbiturates Urine Screen None Detected N None Detect Benzodiazepine Urine Screen None Detected N None Detect Urine Cannabinoids Screen None Detected N None Detect Urine Cocaine Screen None Detected N None Detect Urine Opiates Screen None Detected N None Detect Urine Phencyclidine Screen None Detected N None Detect 17 Laboratory test finding 10/15/2015 [facility] Inr/Protime 1.02 N 0.89-1.11 D Dimer Quantitative < 200 ng/mL N Less Than 230 18 Comp Metabolic Panel 10/15/2015 [facility] Sodium 136 mmol/L N 133-145 Potassium 4.0 mmol/L N 3.5-5.0 Chloride 104 mmol/L N 101-111 Co2 Carbon Dioxide 27 mmol/L N 22-32 Anion Gap 5 mmol/L N 2-11 Glucose 96 mg/dL N 70-100 Blood Urea Nitrogen 17 mg/dL N 6-24 Creatinine 0.86 mg/dL N 0.67-1.17 BUN/Creatinine Ratio 19.8 N 8-20 Calcium 9.4 mg/dL N 8.6-10.3 Total Protein 6.8 g/dL N 6.4-8.9 Albumin 4.3 g/dL N 3.2-5.2 Globulin 2.5 g/dL N 2-4 Albumin/Globulin Ratio 1.7 N 1-3 Total Bilirubin 0.50 mg/dL N 0.2-1.0 Alkaline Phosphatase 50 U/L N 34-104 Alt 16 U/L N 7-52 Ast 13 U/L N 13-39 Egfr Non- 101.8 N >60 Egfr 130.9 N >60 19 Laboratory test 10/15/2015 [facility] Lactic Acid 0.5 mmol/L N 0.5-2.0 20 finding CBC Auto Diff 10/15/2015 [facility] White Blood Count 11.2 10^3/uL High 3.5- 10.8 Red Blood Count 5.11 10^6/uL N 4.0-5.4 Hemoglobin 15.9 g/dL N 14.0-18.0 Hematocrit 48 % N 42-52 Mean Corpuscular Volume 94 fL N 80-94 Mean Corpuscular Hemoglobin 31 pg N 27-31 Mean Corpuscular HGB Conc 33 g/dL N 31-36 Red Cell Distribution Width 13 % N 10.5-15 Platelet Count 242 10^3/uL N 150-450 Mean Platelet Volume 9 um3 N 7.4-10.4 Abs Neutrophils 8.0 10^3/uL High 1.5-7.7 Abs Lymphocytes 2.1 10^3/uL N 1.0-4.8 Abs Monocytes 0.8 10^3/uL N 0-0.8 Abs Eosinophils 0.2 10^3/uL N 0-0.6 Abs Basophils 0.1 10^3/uL N 0-0.2 Abs Nucleated RBC 0.03 10^3/uL N Granulocyte % 71.1 % N 38-83 Lymphocyte % 19.1 % Low 25-47 Monocyte % 7.1 % N 1-9 Eosinophil % 1.5 % N 0-6 Basophil % 1.2 % N 0-2 Nucleated Red Blood Cells % 0.3 N Laboratory test finding 10/13/2015 [facility] Lactic Acid 1.5 mmol/L N 0.5-2.0 21 CBC Auto Diff 10/13/2015 [facility] White Blood Count 10.5 10^3/uL N 3.5-10.8 Red Blood Count 5.02 10^6/uL N 4.0-5.4 Hemoglobin 16.1 g/dL N 14.0-18.0 Hematocrit 47 % N 42-52 Mean Corpuscular Volume 93 fL N 80-94 Mean Corpuscular Hemoglobin 32 pg High 27-31 Mean Corpuscular HGB Conc 35 g/dL N 31-36 Red Cell Distribution Width 13 % N 10.5-15 Platelet Count 246 10^3/uL N 150-450 Mean Platelet Volume 9 um3 N 7.4-10.4 Abs Neutrophils 6.0 10^3/uL N 1.5-7.7 Abs Lymphocytes 3.5 10^3/uL N 1.0-4.8 Abs Monocytes 0.7 10^3/uL N 0-0.8 Abs Eosinophils 0.2 10^3/uL N 0-0.6 Abs Basophils 0.1 10^3/uL N 0-0.2 Abs Nucleated RBC 0.01 10^3/uL N Granulocyte % 57.3 % N 38-83 Lymphocyte % 33.8 % N 25-47 Monocyte % 6.3 % N 1-9 Eosinophil % 1.9 % N 0-6 Basophil % 0.7 % N 0-2 Nucleated Red Blood Cells % 0.1 N Comp Metabolic Panel 10/13/2015 [facility] Sodium 137 mmol/L N 133-145 Potassium 3.7 mmol/L N 3.5-5.0 Chloride 104 mmol/L N 101-111 Co2 Carbon Dioxide 27 mmol/L N 22-32 Anion Gap 6 mmol/L N 2-11 Glucose 103 mg/dL High 70-100 Blood Urea Nitrogen 13 mg/dL N 6-24 Creatinine 0.99 mg/dL N 0.67-1.17 BUN/Creatinine Ratio 13.1 N 8-20 Calcium 9.6 mg/dL N 8.6-10.3 Total Protein 7.1 g/dL N 6.4-8.9 Albumin 4.2 g/dL N 3.2-5.2 Globulin 2.9 g/dL N 2-4 Albumin/Globulin Ratio 1.4 N 1-3 Total Bilirubin 0.40 mg/dL N 0.2-1.0 Alkaline Phosphatase 54 U/L N 34-104 Alt 22 U/L N 7-52 Ast 13 U/L N 13-39 Egfr Non- 86.5 N >60 Egfr 111.3 N >60 22 Laboratory test finding 10/13/2015 [facility] Magnesium 1.8 mg/dL Low 1.9-2.7 Troponin I 0.00 ng/mL N <0.03 23 TSH (Thyroid Stim Horm) 2.40 ?IU/mL N 0.34-5.60 Laboratory test 10/05/2015 [facility] Sedimentation 5 mm/hr 0-15 24 finding [address] [facility] [place] [address] (607)- - Immunoglobulin E, Total 11 IU/mL 0-100 C-Reactive Protein, Quant 0.6 mg/L 0.0-4.9 Lyme AB/Western 10/05/2015 [facility] Lyme IgG/IgM <0.91 ISR 0.00-0.90 25 Blot Reflex [address] [place] [id number] (601)- - Lyme Disease Ab, Quant, IgM <0.80 index 0.00-0.79 26 CBC With 10/05/2015 [facility] WBC 8.0 x10E3/uL 3.4-10.8 Differential/Platelet [address] [place] [id number] (607)- - RBC 5.25 x10E6/uL 4.14-5.80 Hemoglobin 16.6 g/dL 12.6-17.7 Hematocrit 48.5 % 37.5-51.0 MCV 92 fL 79-97 MCH 31.6 pg 26.6-33.0 MCHC 34.2 g/dL 31.5-35.7 RDW 13.2 % 12.3-15.4 Platelets 270 x10E3/uL 150-379 Neutrophils 61 % Lymphs 31 % Monocytes 5 % Eos 3 % Basos 0 % Immature Cells TNP Neutrophils (Absolute) 4.9 x10E3/uL 1.4-7.0 Lymphs (Absolute) 2.4 x10E3/uL 0.7-3.1 Monocytes(Absolute) 0.4 x10E3/uL 0.1-0.9 Eos (Absolute) 0.2 x10E3/uL 0.0-0.4 Baso (Absolute) 0.0 x10E3/uL 0.0-0.2 Immature Granulocytes 0 % Immature Grans (Abs) 0.0 x10E3/uL 0.0-0.1 NRBC [place] Hematology Comments: TNP Laboratory test 2015 [facility] Rapid Strep Negative N Negative 27 finding Molecular Laboratory test 2015 [facility] Rapid Strep A SEE RESULT 28 finding BELOW Laboratory test 07/02/2015 [facility] Throat Beta SEE RESULT 29 finding Strep Culture BELOW Laboratory test 07/02/2015 [facility] Rapid Strep Negative N Negative 30 finding Molecular Lyme AB/Western 03/30/2015 [facility] Lyme IgG/IgM <0.91 ISR 0.00-0.90 31 , 32 Blot Reflex [address] [place] [address] [phone] Lyme Disease Ab, Quant, IgM <0.80 index 0.00-0.79 33 Urinalysis Profile 01/05/2014 [facility] Urine Color Yellow Urine Appearance Clear Urine Specific [place] 1.026 1.010-1.030 Urine pH 5.0 5-9 Urine Urobilinogen Negative Negative Urine Ketones Trace Negative Urine Protein Negative Negative Urine Leukocytes Negative Negative Urine Blood Negative Negative * * Abnormal Negative 34 Urine Nitrite Negative Negative Urine Bilirubin Negative Negative Urine Glucose Negative Negative Comp Metabolic Panel 01/05/2014 [facility] Sodium 137 mmol/L 133-145 Potassium 3.8 mmol/L 3.7-5.6 Chloride 106 mmol/L 101-111 Co2 Carbon Dioxide 26 mmol/L 22-32 Anion Gap 5 mmol/L 2-11 Glucose 89 mg/dL 70-100 Blood Urea Nitrogen 21 mg/dL 6-24 Creatinine 0.91 mg/dL 0.67-1.17 BUN/Creatinine Ratio 23.1 High 8-20 Calcium 9.3 mg/dL 8.6-10.3 Total Protein 7.7 g/dL 6.4-8.9 Albumin 4.8 g/dL 3.2-5.2 Globulin 2.9 g/dL 2-4 Albumin/Globulin Ratio 1.7 1-3 Total Bilirubin 0.50 mg/dL 0.2-1.0 Alkaline Phosphatase 52 U/L 34-104 Alt 27 U/L 7-52 Ast 18 U/L 13-39 Egfr Non- 96.6 >60 Egfr 124.2 >60 35 CBC Auto Diff 01/05/2014 [facility] White Blood Count 11.5 10^3/uL High 4.8- 10.8 Red Blood Count 4.97 10^6/uL 4.0-5.4 Hemoglobin 15.5 g/dL 14.0-18.0 Hematocrit 44 % 42-52 Mean Corpuscular Volume 89 fL 80-94 Mean Corpuscular Hemoglobin 31 pg 27-31 Mean Corpuscular HGB Conc 35 g/dL 31-36 Red Cell Distribution Width 13 % 10.5-15 Platelet Count 237 10^3/uL 150-450 Mean Platelet Volume 8 um3 7.4-10.4 Abs Neutrophils 7.7 10^3/uL 1.5-7.7 Abs Lymphocytes 2.7 10^3/uL 1.0-4.8 Abs Monocytes 0.8 10^3/uL 0-0.8 Abs Eosinophils 0.2 10^3/uL 0-0.6 Abs Basophils 0.1 10^3/uL 0-0.2 Abs Nucleated RBC 0.01 10^3/uL Granulocyte % 67.2 % 38-83 Lymphocyte % 23.4 % Low 25-47 Monocyte % 6.9 % 1-9 Eosinophil % 1.5 % 0-6 Basophil % 1.0 % 0-2 Nucleated Red Blood Cells % 0 Urinalysis Profile 12/22/2013 [facility] Urine Color Yellow Urine Appearance Clear Urine Specific [place] 1.015 1.010-1.030 Urine pH 7.0 5-9 Urine Urobilinogen Negative Negative Urine Ketones Negative Negative Urine Protein Negative Negative Urine Leukocytes Negative Negative Urine Blood Negative Negative Urine Nitrite Negative Negative Urine Bilirubin Negative Negative Urine Glucose Negative Negative CBC Auto Diff 12/22/2013 [facility] [place] White Blood Count 7.6 10^3/uL 4.8-10.8 Red Blood Count 5.08 10^6/uL 4.0-5.4 Hemoglobin 15.9 g/dL 14.0-18.0 Hematocrit 46 % 42-52 Mean Corpuscular Volume 90 fL 80-94 Mean Corpuscular Hemoglobin 31 pg 27-31 Mean Corpuscular HGB Conc 35 g/dL 31-36 Red Cell Distribution Width 13 % 10.5-15 Platelet Count 231 10^3/uL 150-450 Mean Platelet Volume 8 um3 7.4-10.4 Abs Neutrophils 4.8 10^3/uL 1.5-7.7 Abs Lymphocytes 2.0 10^3/uL 1.0-4.8 Abs Monocytes 0.5 10^3/uL 0-0.8 Abs Eosinophils 0.2 10^3/uL 0-0.6 Abs Basophils 0.1 10^3/uL 0-0.2 Abs Nucleated RBC 0.01 10^3/uL Granulocyte % 63.5 % 38-83 Lymphocyte % 26.8 % 25-47 Monocyte % 6.5 % 1-9 Eosinophil % 2.1 % 0-6 Basophil % 1.1 % 0-2 Nucleated Red Blood Cells % 0.1 Comp Metabolic Panel 12/22/2013 [facility] Sodium 135 mmol/L 133-145 Potassium 4.0 mmol/L 3.7-5.6 Chloride 105 mmol/L 101-111 Co2 Carbon Dioxide 27 mmol/L 22-32 Anion Gap 3 mmol/L 2-11 Glucose 104 mg/dL High 70-100 Blood Urea Nitrogen 15 mg/dL 6-24 Creatinine 0.67 mg/dL 0.67-1.17 BUN/Creatinine Ratio 22.4 High 8-20 Calcium 9.3 mg/dL 8.6-10.3 Total Protein 7.1 g/dL 6.4-8.9 Albumin 4.4 g/dL 3.2-5.2 Globulin 2.7 g/dL 2-4 Albumin/Globulin Ratio 1.6 1-3 Total Bilirubin 0.50 mg/dL 0.2-1.0 Alkaline Phosphatase 51 U/L 34-104 Alt 30 U/L 7-52 Ast 17 U/L 13-39 Egfr Non- 137.5 >60 Egfr 176.8 >60 36 Laboratory test finding 12/22/2013 [facility] Lipase 25 U/L 11.0-82.0 C Reactive Protein 1.29 mg/L < 5.00 37 Lactic Acid 1.0 mmol/L 0.5-2.2 1 Because ethnic data is not always readily available, this report includes an eGFR for both -Americans and non- Americans. The National Kidney Disease Education Program (NKDEP) does not endorse the use of the MDRD equation for patients that are not between the ages of 18 and 70, are , have extremes of body size, muscle mass, or nutritional status, or are non- or non-. According to the National Kidney Foundation, irrespective of diagnosis, the stage of the disease is based on the level of kidney function: Stage Description GFR(mL/min/1.73 m(2)) 1 Kidney damage with normal or decreased GFR 90 2 Kidney damage with mild decrease in GFR 60-89 3 Moderate decrease in GFR 30-59 4 Severe decrease in GFR 15-29 5 Kidney failure <15 (or dialysis) 2 Troponin-I testing on Plasma Separator Tubes (PST) has a known false positive rate of 0.20-0.40%. All positive troponins reflex immediate secondary confirmatory testing. 3 2 SST 4 Negative <0.91 Equivocal 0.91 - 1.09 Positive >1.09 5 Negative <0.80 Equivocal 0.80 - 1.19 Positive >1.19 IgM levels may peak at 3-6 weeks post infection, then gradually decline. 6 Because ethnic data is not always readily available, this report includes an eGFR for both -Americans and non- Americans. The National Kidney Disease Education Program (NKDEP) does not endorse the use of the MDRD equation for patients that are not between the ages of 18 and 70, are , have extremes of body size, muscle mass, or nutritional status, or are non- or non-. According to the National Kidney Foundation, irrespective of diagnosis, the stage of the disease is based on the level of kidney function: Stage Description GFR(mL/min/1.73 m(2)) 1 Kidney damage with normal or decreased GFR 90 2 Kidney damage with mild decrease in GFR 60-89 3 Moderate decrease in GFR 30-59 4 Severe decrease in GFR 15-29 5 Kidney failure <15 (or dialysis) 7 NON-FASTING 8 Negative <1:80 Borderline 1:80 Positive >1:80 9 HLA-B*27 Negative HLA allele interpretation for all loci based on IMGT/HLA database version 3.21 [facility] CLIA ID Number [id number] This test was performed using PCR (Polymerase Chain Reaction)/SSOP (Sequence Specific Oligonucleotide Probes) technique. SBT (Sequence Based Typing) and/or SSP (Sequence Specific Primers) may be used as supplemental methods when necessary. Please contact [facility] Customer Service at if you have any questions. Director of [facility] Laboratory Dr Milo Zavala, PhD 10 [facility] Severe Sepsis and Septic Shock Management Bundle Measure requires all lactic acids initially measuring >2.0 mmol/L be repeated. 11 Because ethnic data is not always readily available, this report includes an eGFR for both -Americans and non- Americans. The National Kidney Disease Education Program (NKDEP) does not endorse the use of the MDRD equation for patients that are not between the ages of 18 and 70, are , have extremes of body size, muscle mass, or nutritional status, or are non- or non-. According to the National Kidney Foundation, irrespective of diagnosis, the stage of the disease is based on the level of kidney function: Stage Description GFR(mL/min/1.73 m(2)) 1 Kidney damage with normal or decreased GFR 90 2 Kidney damage with mild decrease in GFR 60-89 3 Moderate decrease in GFR 30-59 4 Severe decrease in GFR 15-29 5 Kidney failure <15 (or dialysis) 12 1SST ROOM [id number] OFF SE RUM ROOM [id number] OFF SER UM FROZEN 13 Abnormal <41 Equivocal 41 - 67 Normal >67 14 >100 to <200 pg/mL: likely compensated congestive heart failure (CHF) 200 to 400 pg/mL: likely moderate CHF >400 pg/mL: likely moderate to severe CHF 15 Reference Range and Interpretation: TnI (ng/mL) Interpretation Less Than 0.03 ng/mL Not supportive of diagnosis of [place] 0.03 - 0.50 ng/mL Indeterminate: suggest serial studies if clinically indicated. Greater than 0.5 ng/mL Consistent with diagnosis of [place] 16 Comment: d 17 The urine specimen was tested at the listed cutoffs: Drug class test level (ng/mL) Amphetamines 500 Barbiturates 200 Benzodiazepine metabolites 200 Cocaine metabolites 150 Cannabinoids 50 Opiates 300 Pcp 25 Specimen was received without chain of custody. Results should be used for medical purposes only. 18 Please note: The following may produce a false positive D Dimer test: - Rheumatoid factor greater than 60 IU/ml - Plasma hemoglobin greater than 0.05 gm/dl - Bilirubin greater than 50 mg/dl - Lipids greater than 1000 mg/dl - FDP greater than 20 ug/ml 19 Because ethnic data is not always readily available, this report includes an eGFR for both -Americans and non- Americans. The National Kidney Disease Education Program (NKDEP) does not endorse the use of the MDRD equation for patients that are not between the ages of 18 and 70, are , have extremes of body size, muscle mass, or nutritional status, or are non- or non-. According to the National Kidney Foundation, irrespective of diagnosis, the stage of the disease is based on the level of kidney function: Stage Description GFR(mL/min/1.73 m(2)) 1 Kidney damage with normal or decreased GFR 90 2 Kidney damage with mild decrease in GFR 60-89 3 Moderate decrease in GFR 30-59 4 Severe decrease in GFR 15-29 5 Kidney failure <15 (or dialysis) 20 [facility] Severe Sepsis and Septic Shock Management Bundle Measure requires all lactic acids initially measuring >2.0 mmol/L be repeated. 21 [facility] Severe Sepsis and Septic Shock Management Bundle Measure requires all lactic acids initially measuring >2.0 mmol/L be repeated. 22 Because ethnic data is not always readily available, this report includes an eGFR for both -Americans and non- Americans. The National Kidney Disease Education Program (NKDEP) does not endorse the use of the MDRD equation for patients that are not between the ages of 18 and 70, are , have extremes of body size, muscle mass, or nutritional status, or are non- or non-. According to the National Kidney Foundation, irrespective of diagnosis, the stage of the disease is based on the level of kidney function: Stage Description GFR(mL/min/1.73 m(2)) 1 Kidney damage with normal or decreased GFR 90 2 Kidney damage with mild decrease in GFR 60-89 3 Moderate decrease in GFR 30-59 4 Severe decrease in GFR 15-29 5 Kidney failure <15 (or dialysis) 23 Reference Range and Interpretation: TnI (ng/mL) Interpretation Less Than 0.03 ng/mL Not supportive of diagnosis of [place] 0.03 - 0.50 ng/mL Indeterminate: suggest serial studies if clinically indicated. Greater than 0.5 ng/mL Consistent with diagnosis of [place] 24 2 sst 25 Negative <0.91 Equivocal 0.91 - 1.09 Positive >1.09 26 Negative <0.80 Equivocal 0.80 - 1.19 Positive >1.19 IgM levels may peak at 3-6 weeks post infection, then gradually decline. 27 Manager Adult: JANES KEARNEY Due to the increased sensitivity of molecular testing, reflex cultures are no longer performed. 28 SEE RESULT BELOW Name: AMADOR STANTON : [address]: Jhony Aguilar MD Acct: [id number] Unit: [id number] AGE: 34 Location: ED Re09/27/15 SEX: M Status: REG ER SPEC: [id number] MELISSA: 09/27/[address] [facility] [address]: Jhony Aguilar MD REQ: [id number] RECD: 09/27/15 STATUS: HALINA ADAMES DR: Gaetano Manning MD _ SOURCE: THROAT SPDESC: ORDERED: Strep A Request Procedure Result Reported Site Rapid Strep A Request Final 09/27/15- 0348 ML Specimen received for Rapid Strep A Molecular testing * ML - MAIN LAB ([facility]) . END OF REPORT * ML=Testing performed at Main Lab DEPARTMENT OF PATHOLOGY, [address] [place] [address] Gino Pérez M.D. Director [facility] # [id number] 29 SEE RESULT BELOW Name: AMADOR STANTON : [address]: Dianelys De Paz MD Acct: [id number] Unit: [id number] AGE: 34 Location: [facility] Re07/02/15 SEX: M Status: DEP ER SPEC: [id number] MELISSA: 07/02/15-[address] [facility] [address]: Dianelys De Paz MD REQ: [id number] RECD: 07/03/15-1230 STATUS: COMP [facility] DR: Gaetano Manning MD _ SOURCE: THROAT SPDESC: ORDERED: Throat Beta Str Procedure Result Reported Site Throat Beta Strep Culture Final 07/05/15- 1044 ML Negative For Group A Beta Streptococcus * ML - MAIN LAB ([facility]) . END OF REPORT * ML=Testing performed at Main Lab DEPARTMENT OF PATHOLOGY, [address] [place] [address] Gino Pérez M.D. Director [facility] # [id number] 30 Manager Adult: [id number] JOHNSON HUFF The sample prep technician and regulatory agencies both recommend that a throat culture for beta strep be performed if a Rapid Group A Strep assay yields a negative result. Therefore a culture will be automatically performed on all negative samples. 31 1sst 32 Negative <0.91 Equivocal 0.91 - 1.09 Positive >1.09 33 Negative <0.80 Equivocal 0.80 - 1.19 Positive >1.19 IgM levels may peak at 3-6 weeks post infection, then gradually decline. 34 *Ascorbic acid is present which may interfere with detection of blood. 35 Because ethnic data is not always readily available, this report includes an eGFR for both -Americans and non- Americans. The National Kidney Disease Education Program (NKDEP) does not endorse the use of the MDRD equation for patients that are not between the ages of 18 and 70, are , have extremes of body size, muscle mass, or nutritional status, or are non- or non-. According to the National Kidney Foundation, irrespective of diagnosis, the stage of the disease is based on the level of kidney function: Stage Description GFR(mL/min/1.73 m(2)) 1 Kidney damage with normal or decreased GFR 90 2 Kidney damage with mild decrease in GFR 60-89 3 Moderate decrease in GFR 30-59 4 Severe decrease in GFR 15-29 5 Kidney failure <15 (or dialysis) 36 Because ethnic data is not always readily available, this report includes an eGFR for both -Americans and non- Americans. The National Kidney Disease Education Program (NKDEP) does not endorse the use of the MDRD equation for patients that are not between the ages of 18 and 70, are , have extremes of body size, muscle mass, or nutritional status, or are non- or non-. According to the National Kidney Foundation, irrespective of diagnosis, the stage of the disease is based on the level of kidney function: Stage Description GFR(mL/min/1.73 m(2)) 1 Kidney damage with normal or decreased GFR 90 2 Kidney damage with mild decrease in GFR 60-89 3 Moderate decrease in GFR 30-59 4 Severe decrease in GFR 15-29 5 Kidney failure <15 (or dialysis) 37 Acute inflammation: >10.00 Procedures Date Code Description Status 10/10/2015 17128 Pulse Oximetry Completed 11/03/2014 62575 Pulse Oximetry Completed 08/03/2014 75383 Electrocardiogram Complete Completed Encounters Type Date Location Provider Dx Diagnosis Office Visit 04/02/2018 Main Office Alberto Walls K21.9 Gastro-esophageal 7:30p MD Christa reflux disease without esophagitis S40.862A Insect bite (nonvenomous) of left upper arm, init encntr J45.909 Unspecified asthma, uncomplicated W57.xxxA Bit/stung by nonvenom insect & oth nonvenom arthropods, init Office Visit 11/06/2016 [facility] Alberto Jon R03.0 Elevated 10:00a Office Amina Michelle blood-pressure reading, w/o diagnosis of htn Office Visit 08/16/2016 Main Office Dane Boles R51 Headache 7:00p Amina Urrutia Office Visit 01/02/2016 Main Office Alberto Jon M25.579 Pain in unspecified 2:00p Amina Michelle ankle and joints of unspecified foot M25.569 Pain in unspecified knee H10.89 Other conjunctivitis N34.2 Other urethritis Office Visit 10/17/2015 3:00p Main Office Alberto Jon T78.3XXA Angioneurotic Amina Michelle edema, initial encounter R07.89 Other chest pain R00.0 Tachycardia, unspecified Office Visit 10/10/2015 2:30p [facility] Office Wanda Edwards, R22.1 Localized [employer] swelling, mass and lump, neck J45.30 Mild persistent asthma, uncomplicated Office Visit 10/05/2015 11:20a Main Office Alberto Michelle, K13.79 Other lesions of M.D. oral mucosa R22.1 Localized swelling, mass and lump, neck Office Visit 03/30/2015 10:30a Main Office Gaetano Manning M.D. 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 455.6 Hemorrhoids Unspec Office W/O Complication Office Visit 12/04/2013 3:30p Mei Manning M.D. 601.9 Prostatitis Unspec Office Office Visit 10/27/2013 8:40a Mei Manning M.D. 493.90 Asthma Unspec W/O Office Status Asthmaticus 601.9 Prostatitis Unspec 477.9 Rhinitis Allergic Cause Unspec Office Visit 09/25/2013 3:20p [facility] Gaetano Manning 493.90 Asthma Unspec W/O M.D. Status Asthmaticus Office Visit 07/29/2013 1:40p Main Office Gaetano Manning 493.90 Asthma Unspec W/O M.D. Status Asthmaticus 477.9 Rhinitis Allergic Cause Unspec Plan of Treatment 07/04/2018 - Alberto Goodwin MDI47.1 Supraventricular tachycardiaAllComments:~B_~U_Medication Management~b_~u_ Patient Understands medications he's taking? Yes No Are there Barriers to Adherence? Yes No Has the patient been asked about herbal supplements and therapies, and OTC meds? Yes No
[2018-07-21 16:09] VITALS: BP 134/96
== END 2018-07-21 18:00 | disposition left against medical advice (07) ==
LOC: UCEAST 15:59
DX: Z53.21 Procedure and treatment not carried out due to patient leaving prior to being seen by health care provider (principal)

== ENCOUNTER 2019-01-08 17:45 | Emergency (ER) | payer OTHER ==
[2019-01-08 18:15] VITALS: BP 124/90
--- NOTE | 2019-01-08 18:24 | UC ---
Back Pain HPI - HPI Summary HPI Summary: Mr. Dc hurt his back playing hockey last June. At that time he was told that it was probably a disc and recommended physical therapy. He has seen the nurse practitioner in Dr. De Anda's office who recommended physical therapy also but apparently didn't give him a referral. He comes in asking for referral to a back specialist so that he can get an MRI scan. His pain is worse in the morning when he gets up and it takes him quite a while to get moving. It is better as the day goes on. If he works extra hard one day he will have more pain the next. He has no trouble with bowels or bladder or weakness/paresthesias. - History of Current Complaint Chief Complaint: UCBackPain Stated Complaint: BACK INJURY FROM JUNE Time Seen by Provider: 01/08/19 18:00 Hx Obtained From: Patient Onset/Duration: Sudden Onset, Lasting Weeks Timing: Constant Severity Initially: Moderate Severity Currently: Moderate Pain Intensity: 7 Back Pain: Is Discrete @ - Low back Character: Aching, Stiffness Aggravating Factor(s): Movement, Lifting, Bending Associated Signs And Symptoms: Positive: Negative - Allergies/Home Medications Allergies/Adverse Reactions: Allergies Allergy/AdvReac Type Severity Reaction Status Date / Time doxycycline Allergy Rash Verified 01/08/19 18:00 lactose Allergy GI Upset Verified 01/08/19 18:00 Sulfa (Sulfonamide Allergy Rash Verified 01/08/19 18:00 Antibiotics) Home Medications: Home Medications Famotidine 40 mg PO DAILY PRN 01/08/19 [History Confirmed 01/08/19] PMH/Surg Hx/FS Hx/Imm Hx Previously Healthy: Yes Other History Of: Negative For: Anticoagulant Therapy - Surgical History Surgical History: Yes Surgery Procedure, Year, and Place: wisdom teeth - Family History Known Family History: Positive: Cardiac Disease - DAD [place] AGE 33 (COCAINE USER). PGM NC AGE 42 (HAD BLOOD CLOT) - Social History Alcohol Use: Occasionally Substance Use Type: Marijuana Substance Use Comment - Amount & Last Used: daily Smoking Status (MU): Light Every Day Tobacco Smoker Type: Cigarettes Amount Used/How Often: 5-10 CIG/DAY Length of Time of Smoking/Using Tobacco: 10+ years Have You Smoked in the Last Year: Yes When Did the Patient Quit Smoking/Using Tobacco: 4 months ago Household Exposure Type: Cigarettes - Immunization History Most Recent Influenza Vaccination: never Most Recent Tetanus Shot: up to date Review of Systems All Other Systems Reviewed And Are Negative: Yes Constitutional: Positive: Negative Respiratory: Positive: Negative Gastrointestinal: Positive: Negative Genitourinary: Positive: Negative Physical Exam - Summary Physical Exam Summary: He is nontoxic in appearance with stable vitals Triage Information Reviewed: Yes Appearance: Well-Appearing, No Pain Distress Vital Signs: Initial Vital Signs Temp 98.7 F 01/08/19 18:12 Pulse 67 01/08/19 18:12 Resp 18 01/08/19 18:12 BP 124/90 01/08/19 18:12 Pulse Ox 97 01/08/19 18:12 Vital Signs Reviewed: Yes Neck: Positive: Supple Musculoskeletal Exam: Normal Neurological Exam: Normal Skin Exam: Normal Back Pain Course/Dx - Course Course Of Treatment: I agree that clinically this very well could represent a disc issue. I recommended that he get physical therapy and I will give him a referral. - Differential Dx/Diagnosis Provider Diagnosis: Back pain Discharge - Sign-Out/Discharge Documenting (check all that apply): Patient Departure All imaging exams completed and their final reports reviewed: No Studies - Discharge Plan Condition: Stable Disposition: HOME Patient Education Materials: Back Pain (ED) Referrals: Alberto Michelle MD [Primary Care Provider] - Missy Hemphill MD [Medical Doctor] - - Billing Disposition and Condition Condition: STABLE Disposition: Home
== END 2019-01-08 18:35 | disposition home or self-care (01) ==
LOC: UCEAST 17:45
DX: M54.9 Dorsalgia, unspecified (principal); F17.210 Nicotine dependence, cigarettes, uncomplicated; Z88.2 Allergy status to sulfonamides
CPT/HCPCS: 99211; G0463